=== PATIENT | male | born 1955 | race Caucasian/White ===

== ENCOUNTER 2023-02-04 01:08 | Inpatient (IN) | payer MEDICARE, SELFPAY ==
[2023-02-04 01:53] LABS: Bilirubin Neg (Negative); Blood, Urine 50 (Negative); Clarity Clear (Clear); Glucose, Urine (Dipstick) Normal (Negative); Ketone, Urine Negative (Negative); Leukocyte Negative (Negative); Nitrite Negative (Negative); Protein, Urine (Dipstick) Negative (Neg-Trace); Specific Gravity, Urine 1.015 (1.005-1.030)
[2023-02-04 02:00] LABS: Bacteria/HPF 1+ HPF (None Seen); Squamous Epithelial 0-3 HPF (0-3); WBC/HPF 0-3 HPF (0-3)
[2023-02-04 02:01] LABS: Mucous/LPF 1+ LPF (<2+)
[2023-02-04 02:06] LABS: #Monocytes 0.8 10x3/uL (0.0-1.1); #Neutrophils 4.2 10x3/uL (1.5-8.4); %Basophils 0.4 % (0.0-2.0); %Eosinophils 0.2 % (0.0-6.0); %Monocytes 14.7 % (0.0-10.0); %Neutrophils 76.2 % (40.0-75.0); Mean Corpuscular HGB CONC 33.4 g/dL (32.0-36.0); Mean Corpuscular Hemoglobin 31.3 pg (27.0-33.0); Mean Corpuscular Volume 93.5 fl (81.2-95.1); Mean Platelet Volume 9.5 fl (7.4-10.4); Platelet Count 176 10x3/uL (150-450); Red Blood Cell (RBC) Count 4.48 10x6/uL (4.32-5.72); White Blood Cell (WBC) Count 5.5 10x3/uL (3.5-10.5)
[2023-02-04] MEDS ORDERED: Sterile Water 10 ML ONE ×2 (02:17→10:41)
[2023-02-04] MEDS ORDERED: Ziprasidone 20 MG VIAL ONE ×2 (02:17→10:40)
[2023-02-04 02:22] LABS: ALT (SGPT) 31 U/L (8-55); AST (SGOT) 23 U/L (5-34); Albumin 3.8 g/dL (3.4-4.8); Alkaline Phosphatase 57 U/L (40-110); Anion Gap 13 mmol/L (10-20); BUN (Urea Nitrogen) 12 mg/dL (8.4-25.7); Bilirubin, Total 0.7 mg/dL (0.2-1.2); Calc. Creatinine Clearance 0 mL/min (70-130); Calcium 8.7 mg/dL (7.8-10.44); Carbon Dioxide 22 mmol/L (23-31); Chloride 105 mmol/L (98-107); Estimated GFR 69; Globulin 2.5 g/dL (2.4-3.5); Glucose 96 mg/dL (80-115); Potassium 3.9 mmol/L (3.5-5.1); Protein, Total 6.3 g/dL (5.8-8.1); Sodium 136 mmol/L (136-145)
[2023-02-04] MEDS ORDERED: cefTRIAXone (ROCEPHIN) 1 GM VIAL ONE (02:32)
[2023-02-04 02:52] LABS: SARS-CoV-2 NAA Rapid Test DETECTED (NotDetected)
[2023-02-04] MEDS ORDERED: Ondansetron PF 4 MG/2 ML Vial IVP PRN (06:10)
[2023-02-04] MEDS ORDERED: Senokot S 8.6-50 MG TAB PO PRN (06:10)
[2023-02-04] MEDS ORDERED: Calcium Carbonate 500 MG ChewTAB PO PRN (06:10)
[2023-02-04] MEDS ORDERED: Temazepam 15 MG CAP PO PRN (06:13)
[2023-02-04] MEDS ORDERED: PAXLOVID REQUEST IVPB PRN (06:42)
[2023-02-04] MEDS ORDERED: Tamsulosin HCl 0.4 MG CAP PO SCH (06:45)
[2023-02-04] MEDS ORDERED: Tamsulosin HCl 0.4 MG CAP ONE (13:24)
[2023-02-04] MEDS ORDERED: Amlodipine 5 MG TAB ONE (13:24)
[2023-02-04] MEDS ORDERED: Zinc Sulfate 220 MG CAP ONE (13:24)
[2023-02-04 14:11] VITALS: BMI 26.4
[2023-02-04] MEDS: Amlodipine 5 MG TAB PO SCH (14:30)
[2023-02-04] MEDS: Zinc Sulfate 220 MG CAP PO SCH (14:31)
[2023-02-04] MEDS: Finasteride 5 MG TAB PO SCH (14:31)
[2023-02-04] MEDS ORDERED: Acetaminophen 650 MG Suppository PR PRN (15:51)
[2023-02-04] MEDS ORDERED: Iopamidol 300 61% 100 ML VIAL FS ONE (15:53)
[2023-02-04] MEDS ORDERED: Vancomycin 1.5 GRAM/300 ML BAG 1.5 GM in Premix Bag 1 BAG IVPB SCH (17:00)
[2023-02-04] MEDS ORDERED: Acetaminophen 650 MG Suppository ONE (17:24)
[2023-02-04] MEDS: Tamsulosin HCl 0.4 MG CAP PO SCH (20:42)
[2023-02-04] MEDS: Citalopram 20 MG TAB PO SCH (20:42)
[2023-02-04] MEDS: Atorvastatin Calcium 20 MG TAB PO SCH (20:42)
[2023-02-04] MEDS: Cefepime 2 GM in Sodium Chloride 0.9% 100 ML IVPB SCH (20:42)
[2023-02-04] MEDS: Acetaminophen 325 MG TAB PO PRN (20:43)
[2023-02-05] MEDS ORDERED: cefTRIAXone\\ROCEPHIN 1 GM in Sodium Chloride 0.9% 100 ML IVPB SCH (05:00)
[2023-02-05 06:00] LABS: Hemoglobin 14.5 g/dL (13.5-17.5); Mean Corpuscular HGB CONC 33.2 g/dL (32.0-36.0); Mean Corpuscular Hemoglobin 31.5 pg (27.0-33.0); Mean Corpuscular Volume 94.8 fl (81.2-95.1); Mean Platelet Volume 10.1 fl (7.4-10.4); Platelet Count 162 10x3/uL (150-450); RBC Distribution Width 13.2 % (11.5-14.5); Red Blood Cell (RBC) Count 4.61 10x6/uL (4.32-5.72); White Blood Cell (WBC) Count 4.8 10x3/uL (3.5-10.5)
[2023-02-05 06:01] LABS: MDiff Complete? YES
[2023-02-05 06:11] LABS: ALT (SGPT) 36 U/L (8-55); AST (SGOT) 35 U/L (5-34); Albumin 3.6 g/dL (3.4-4.8); Alkaline Phosphatase 62 U/L (40-110); Anion Gap 15 mmol/L (10-20); BUN (Urea Nitrogen) 17 mg/dL (8.4-25.7); Bilirubin, Total 0.7 mg/dL (0.2-1.2); Calc. Creatinine Clearance 91 mL/min (70-130); Calcium 8.6 mg/dL (7.8-10.44); Carbon Dioxide 21 mmol/L (23-31); Chloride 106 mmol/L (98-107); Estimated GFR 86; Globulin 2.5 g/dL (2.4-3.5); Glucose 110 mg/dL (80-115); Potassium 3.7 mmol/L (3.5-5.1); Protein, Total 6.1 g/dL (5.8-8.1); Sodium 138 mmol/L (136-145)
[2023-02-05 06:16] LABS: Band 3 % (5-11); Lymphocytes 21 % (21-51); Monocytes 10 % (0-10); Neutrophil 63 % (42-75); Reactive Lymphocytes 3 % (0-10)
[2023-02-05 06:18] LABS: Platelet Morphology Comment Appears Adequate
[2023-02-05 06:19] LABS: RBC Morphology Normal
[2023-02-05] MEDS: Amlodipine 5 MG TAB PO SCH (09:12)
[2023-02-05] MEDS: Zinc Sulfate 220 MG CAP PO SCH (09:12)
[2023-02-05] MEDS: Finasteride 5 MG TAB PO SCH (09:13)
[2023-02-05] MEDS: Cefepime 2 GM in Sodium Chloride 0.9% 100 ML IVPB SCH ×2 (09:17→21:47)
[2023-02-05] MEDS: Rivastigmine 1.5 MG CAP PO SCH (09:35)
[2023-02-05] MEDS ORDERED: Haloperidol Lactate 5 MG/ML VIAL ONE (12:13)
[2023-02-05] MEDS ORDERED: Haloperidol Lactate 5 MG/ML VIAL IM SCH (12:15)
[2023-02-05] MEDS: Vancomycin HCl 1 GM in Sodium Chloride 0.9% 250 ML 250 ML IVPB SCH ×2 (14:40→21:50)
[2023-02-05] MEDS ORDERED: Sodium Chloride 0.9% 1,000 ML IV SCH (15:30)
[2023-02-05] MEDS ORDERED: QUEtiapine 25 MG TAB PO SCH (16:00)
[2023-02-05] MEDS: Atorvastatin Calcium 20 MG TAB PO SCH (21:44)
[2023-02-05] MEDS: Tamsulosin HCl 0.4 MG CAP PO SCH (21:44)
[2023-02-06 04:23] LABS: #Eosinphils 0.1 10x3/uL (0.0-0.5); #Monocytes 0.5 10x3/uL (0.0-1.1); #Neutrophils 2.4 10x3/uL (1.5-8.4); %Basophils 0.5 % (0.0-2.0); %Eosinophils 2.5 % (0.0-6.0); %Lymphocytes 24.4 % (18.0-47.0); %Monocytes 12.8 % (0.0-10.0); %Neutrophils 59.3 % (40.0-75.0); Hemoglobin 13.8 g/dL (13.5-17.5); Mean Corpuscular HGB CONC 32.9 g/dL (32.0-36.0); Mean Corpuscular Hemoglobin 31.3 pg (27.0-33.0); Platelet Count 155 10x3/uL (150-450); RBC Distribution Width 13.1 % (11.5-14.5); Red Blood Cell (RBC) Count 4.41 10x6/uL (4.32-5.72); White Blood Cell (WBC) Count 4.1 10x3/uL (3.5-10.5)
[2023-02-06 04:24] LABS: ALT (SGPT) 34 U/L (8-55); AST (SGOT) 31 U/L (5-34); Albumin 3.3 g/dL (3.4-4.8); Alkaline Phosphatase 51 U/L (40-110); Anion Gap 13 mmol/L (10-20); BUN (Urea Nitrogen) 13 mg/dL (8.4-25.7); Bilirubin, Total 0.5 mg/dL (0.2-1.2); Calc. Creatinine Clearance 105 mL/min (70-130); Carbon Dioxide 24 mmol/L (23-31); Chloride 107 mmol/L (98-107); Estimated GFR 96; Globulin 2.2 g/dL (2.4-3.5); Glucose 85 mg/dL (80-115); Potassium 3.6 mmol/L (3.5-5.1); Protein, Total 5.5 g/dL (5.8-8.1); Sodium 140 mmol/L (136-145)
[2023-02-06 08:47] LABS: Vancomycin, Trough 5.3 ug/mL
[2023-02-06] MEDS: Amlodipine 5 MG TAB PO SCH (09:40)
[2023-02-06] MEDS: Zinc Sulfate 220 MG CAP PO SCH (09:41)
[2023-02-06] MEDS: Rivastigmine 1.5 MG CAP PO SCH (09:41)
[2023-02-06] MEDS: Finasteride 5 MG TAB PO SCH (09:41)
[2023-02-06] MEDS: QUEtiapine 25 MG TAB PO SCH (09:41)
[2023-02-06] MEDS: Sodium Chloride 0.9% 1,000 ML IV SCH (13:12)
[2023-02-06] MEDS: Vancomycin HCl 1 GM in Sodium Chloride 0.9% 250 ML 250 ML IVPB SCH (19:53)
[2023-02-06] MEDS: Cefepime 2 GM in Sodium Chloride 0.9% 100 ML IVPB SCH (19:53)
[2023-02-06] MEDS: Atorvastatin Calcium 20 MG TAB PO SCH (21:04)
[2023-02-06] MEDS: Tamsulosin HCl 0.4 MG CAP PO SCH (21:04)
[2023-02-07] MEDS: Sodium Chloride 0.9% 1,000 ML IV SCH ×2 (02:56→21:06)
[2023-02-07 04:20] LABS: #Eosinphils 0.2 10x3/uL (0.0-0.5); #Monocytes 0.5 10x3/uL (0.0-1.1); #Neutrophils 2.4 10x3/uL (1.5-8.4); %Basophils 0.5 % (0.0-2.0); %Lymphocytes 21.3 % (18.0-47.0); %Neutrophils 61.2 % (40.0-75.0); Hemoglobin 13.6 g/dL (13.5-17.5); Mean Corpuscular HGB CONC 33.2 g/dL (32.0-36.0); Mean Corpuscular Hemoglobin 31.3 pg (27.0-33.0); Mean Corpuscular Volume 94.3 fl (81.2-95.1); Mean Platelet Volume 10.4 fl (7.4-10.4); Platelet Count 172 10x3/uL (150-450); Red Blood Cell (RBC) Count 4.35 10x6/uL (4.32-5.72)
[2023-02-07 04:33] LABS: ALT (SGPT) 24 U/L (8-55); AST (SGOT) 22 U/L (5-34); Albumin 3.2 g/dL (3.4-4.8); Alkaline Phosphatase 52 U/L (40-110); Anion Gap 10 mmol/L (10-20); BUN (Urea Nitrogen) 8 mg/dL (8.4-25.7); Bilirubin, Total 0.6 mg/dL (0.2-1.2); Calc. Creatinine Clearance 114 mL/min (70-130); Carbon Dioxide 26 mmol/L (23-31); Chloride 107 mmol/L (98-107); Estimated GFR 98; Globulin 2.2 g/dL (2.4-3.5); Glucose 82 mg/dL (80-115); Potassium 3.4 mmol/L (3.5-5.1); Protein, Total 5.4 g/dL (5.8-8.1); Sodium 140 mmol/L (136-145)
[2023-02-07] MEDS: Zinc Sulfate 220 MG CAP PO SCH (09:01)
[2023-02-07] MEDS: Amlodipine 5 MG TAB PO SCH (09:01)
[2023-02-07] MEDS: QUEtiapine 25 MG TAB PO SCH (09:01)
[2023-02-07] MEDS: Finasteride 5 MG TAB PO SCH (09:01)
[2023-02-07] MEDS: Rivastigmine 1.5 MG CAP PO SCH (09:25)
[2023-02-07] MEDS ORDERED: Potassium Chloride 20 MEQ TAB PO SCH (11:15)
[2023-02-07] MEDS: Citalopram 20 MG TAB PO SCH (21:06)
[2023-02-07] MEDS: Atorvastatin Calcium 20 MG TAB PO SCH (21:06)
[2023-02-07] MEDS: Tamsulosin HCl 0.4 MG CAP PO SCH (21:06)
[2023-02-08] MEDS: Acetaminophen 325 MG TAB PO PRN ×2 (01:27→18:10)
[2023-02-08 05:21] LABS: #Eosinphils 0.1 10x3/uL (0.0-0.5); #Monocytes 0.4 10x3/uL (0.0-1.1); #Neutrophils 5.9 10x3/uL (1.5-8.4); %Basophils 0.1 % (0.0-2.0); %Eosinophils 0.7 % (0.0-6.0); %Lymphocytes 6.9 % (18.0-47.0); %Monocytes 5.6 % (0.0-10.0); %Neutrophils 86.3 % (40.0-75.0); Hemoglobin 14.8 g/dL (13.5-17.5); Mean Corpuscular HGB CONC 33.3 g/dL (32.0-36.0); Mean Corpuscular Hemoglobin 31.4 pg (27.0-33.0); Mean Corpuscular Volume 94.1 fl (81.2-95.1); Mean Platelet Volume 10.1 fl (7.4-10.4); Platelet Count 174 10x3/uL (150-450); Red Blood Cell (RBC) Count 4.72 10x6/uL (4.32-5.72); White Blood Cell (WBC) Count 6.8 10x3/uL (3.5-10.5)
[2023-02-08 05:30] LABS: ALT (SGPT) 25 U/L (8-55); AST (SGOT) 21 U/L (5-34); Albumin 3.5 g/dL (3.4-4.8); Alkaline Phosphatase 66 U/L (40-110); Anion Gap 12 mmol/L (10-20); BUN (Urea Nitrogen) 8 mg/dL (8.4-25.7); Bilirubin, Total 0.7 mg/dL (0.2-1.2); Calc. Creatinine Clearance 104 mL/min (70-130); Calcium 8.3 mg/dL (7.8-10.44); Carbon Dioxide 25 mmol/L (23-31); Chloride 104 mmol/L (98-107); Estimated GFR 96; Globulin 2.6 g/dL (2.4-3.5); Glucose 91 mg/dL (80-115); Potassium 3.6 mmol/L (3.5-5.1); Protein, Total 6.1 g/dL (5.8-8.1); Sodium 137 mmol/L (136-145)
[2023-02-08] MEDS: Sodium Chloride 0.9% 1,000 ML IV SCH ×2 (10:12→17:41)
[2023-02-08] MEDS: Finasteride 5 MG TAB PO SCH (10:14)
[2023-02-08] MEDS: Rivastigmine 1.5 MG CAP PO SCH (10:14)
[2023-02-08] MEDS: Zinc Sulfate 220 MG CAP PO SCH (10:15)
[2023-02-08] MEDS: Amlodipine 5 MG TAB PO SCH (10:15)
[2023-02-08] MEDS: QUEtiapine 25 MG TAB PO SCH (10:15)
[2023-02-08] MEDS: Citalopram 20 MG TAB PO SCH (20:27)
[2023-02-08] MEDS: Tamsulosin HCl 0.4 MG CAP PO SCH (20:27)
[2023-02-08] MEDS: Atorvastatin Calcium 20 MG TAB PO SCH (20:27)
[2023-02-09] MEDS: Acetaminophen 325 MG TAB PO PRN ×2 (01:00→09:21)
[2023-02-09 04:46] LABS: #Monocytes 0.6 10x3/uL (0.0-1.1); #Neutrophils 10.6 10x3/uL (1.5-8.4); %Basophils 0.2 % (0.0-2.0); %Eosinophils 0.3 % (0.0-6.0); %Lymphocytes 7.6 % (18.0-47.0); %Monocytes 4.7 % (0.0-10.0); %Neutrophils 86.7 % (40.0-75.0); Mean Corpuscular HGB CONC 33.3 g/dL (32.0-36.0); Platelet Count 171 10x3/uL (150-450); RBC Distribution Width 13.1 % (11.5-14.5); Red Blood Cell (RBC) Count 4.84 10x6/uL (4.32-5.72); White Blood Cell (WBC) Count 12.3 10x3/uL (3.5-10.5)
[2023-02-09 04:52] LABS: ALT (SGPT) 27 U/L (8-55); AST (SGOT) 28 U/L (5-34); Albumin 3.4 g/dL (3.4-4.8); Alkaline Phosphatase 64 U/L (40-110); Anion Gap 12 mmol/L (10-20); BUN (Urea Nitrogen) 15 mg/dL (8.4-25.7); Bilirubin, Total 0.7 mg/dL (0.2-1.2); Calc. Creatinine Clearance 84 mL/min (70-130); Calcium 8.4 mg/dL (7.8-10.44); Carbon Dioxide 23 mmol/L (23-31); Chloride 102 mmol/L (98-107); Estimated GFR 78; Globulin 2.7 g/dL (2.4-3.5); Glucose 99 mg/dL (80-115); Potassium 3.6 mmol/L (3.5-5.1); Protein, Total 6.1 g/dL (5.8-8.1); Sodium 133 mmol/L (136-145)
[2023-02-09] MEDS: Sodium Chloride 0.9% 1,000 ML IV SCH ×2 (07:31→21:13)
[2023-02-09] MEDS: Amlodipine 5 MG TAB PO SCH (09:22)
[2023-02-09] MEDS: Finasteride 5 MG TAB PO SCH (09:22)
[2023-02-09] MEDS: Rivastigmine 1.5 MG CAP PO SCH (09:23)
[2023-02-09] MEDS: Zinc Sulfate 220 MG CAP PO SCH (09:23)
[2023-02-09] MEDS: QUEtiapine 25 MG TAB PO SCH (09:27)
[2023-02-09] MEDS ORDERED: Vancomycin 1.5 GRAM/300 ML BAG 1.5 GM in Premix Bag 1 BAG IVPB SCH ×2 (10:00→12:00)
[2023-02-09] MEDS: Cefepime 2 GM in Sodium Chloride 0.9% 100 ML IVPB SCH ×2 (11:40→21:15)
[2023-02-09] MEDS ORDERED: Sodium Chloride 0.9% 1,000 ML IV SCH (17:15)
[2023-02-09] MEDS ORDERED: Ketorolac Tromethamine 30 MG/ML VIAL IM SCH (18:15)
[2023-02-09] MEDS: Citalopram 20 MG TAB PO SCH (21:14)
[2023-02-09] MEDS: Tamsulosin HCl 0.4 MG CAP PO SCH (21:15)
[2023-02-09] MEDS: Atorvastatin Calcium 20 MG TAB PO SCH (21:15)
[2023-02-09] MEDS: Vancomycin HCl 1 GM in Sodium Chloride 0.9% 250 ML 250 ML IVPB SCH (23:54)
[2023-02-10 04:49] LABS: Hemoglobin 13.8 g/dL (13.5-17.5); MDiff Complete? YES; Mean Corpuscular HGB CONC 33.7 g/dL (32.0-36.0); Mean Corpuscular Hemoglobin 31.2 pg (27.0-33.0); Mean Corpuscular Volume 92.3 fl (81.2-95.1); Mean Platelet Volume 10.4 fl (7.4-10.4); Platelet Count 160 10x3/uL (150-450); RBC Distribution Width 13.1 % (11.5-14.5); Red Blood Cell (RBC) Count 4.43 10x6/uL (4.32-5.72); White Blood Cell (WBC) Count 10.6 10x3/uL (3.5-10.5)
[2023-02-10 04:56] LABS: ALT (SGPT) 22 U/L (8-55); AST (SGOT) 26 U/L (5-34); Albumin 2.8 g/dL (3.4-4.8); Alkaline Phosphatase 55 U/L (40-110); Anion Gap 13 mmol/L (10-20); BUN (Urea Nitrogen) 14 mg/dL (8.4-25.7); Bilirubin, Total 0.5 mg/dL (0.2-1.2); Calc. Creatinine Clearance 108 mL/min (70-130); Calcium 7.6 mg/dL (7.8-10.44); Carbon Dioxide 18 mmol/L (23-31); Chloride 106 mmol/L (98-107); Estimated GFR 97; Globulin 2.1 g/dL (2.4-3.5); Glucose 94 mg/dL (80-115); Potassium 3.3 mmol/L (3.5-5.1); Protein, Total 4.9 g/dL (5.8-8.1); Sodium 134 mmol/L (136-145)
[2023-02-10 05:12] LABS: Band 12 % (5-11); Lymphocytes 4 % (21-51); Monocytes 8 % (0-10); Neutrophil 76 % (42-75)
[2023-02-10 05:13] LABS: Platelet Morphology Comment Appears Adequate
[2023-02-10] MEDS: Rivastigmine 1.5 MG CAP PO SCH (08:42)
[2023-02-10] MEDS: Amlodipine 5 MG TAB PO SCH (08:42)
[2023-02-10] MEDS: Finasteride 5 MG TAB PO SCH (08:43)
[2023-02-10] MEDS: QUEtiapine 25 MG TAB PO SCH (08:43)
[2023-02-10] MEDS: Zinc Sulfate 220 MG CAP PO SCH (08:45)
[2023-02-10] MEDS ORDERED: Potassium Chloride 20 MEQ TAB PO SCH (09:00)
[2023-02-10] MEDS: Vancomycin HCl 25 MG/ML ORAL SOLN PO SCH ×3 (10:05→21:35)
[2023-02-10] MEDS: Cefepime 2 GM in Sodium Chloride 0.9% 100 ML IVPB SCH ×2 (10:06→21:35)
[2023-02-10] MEDS: Sodium Chloride 0.9% 1,000 ML IV SCH (10:07)
[2023-02-10] MEDS: Vancomycin HCl 1 GM in Sodium Chloride 0.9% 250 ML 250 ML IVPB SCH (13:22)
[2023-02-10] MEDS: Acetaminophen 325 MG TAB PO SCH (18:53)
[2023-02-10] MEDS: Tamsulosin HCl 0.4 MG CAP PO SCH (21:35)
[2023-02-10] MEDS: Citalopram 20 MG TAB PO SCH (21:35)
[2023-02-10] MEDS: Atorvastatin Calcium 20 MG TAB PO SCH (21:35)
[2023-02-10 23:36] LABS: Vancomycin, Trough 6.9 ug/mL
[2023-02-10] MEDS ORDERED: Vancomycin 1.5 GRAM/300 ML BAG 1.5 GM in Premix Bag 1 BAG IVPB SCH (23:59)
[2023-02-11] MEDS: Sodium Chloride 0.9% 1,000 ML IV SCH ×2 (00:15→13:11)
[2023-02-11] MEDS: Vancomycin HCl 25 MG/ML ORAL SOLN PO SCH ×4 (03:45→22:06)
[2023-02-11 04:44] LABS: Hemoglobin 12.8 g/dL (13.5-17.5); MDiff Complete? YES; Mean Corpuscular HGB CONC 33.2 g/dL (32.0-36.0); Mean Corpuscular Hemoglobin 31.3 pg (27.0-33.0); Mean Corpuscular Volume 94.1 fl (81.2-95.1); Mean Platelet Volume 10.5 fl (7.4-10.4); Platelet Count 151 10x3/uL (150-450); RBC Distribution Width 13.3 % (11.5-14.5); Red Blood Cell (RBC) Count 4.09 10x6/uL (4.32-5.72)
[2023-02-11 04:59] LABS: ALT (SGPT) 30 U/L (8-55); AST (SGOT) 38 U/L (5-34); Albumin 2.5 g/dL (3.4-4.8); Alkaline Phosphatase 50 U/L (40-110); Anion Gap 10 mmol/L (10-20); BUN (Urea Nitrogen) 11 mg/dL (8.4-25.7); Bilirubin, Total 0.4 mg/dL (0.2-1.2); Calc. Creatinine Clearance 130 mL/min (70-130); Calcium 7.5 mg/dL (7.8-10.44); Carbon Dioxide 19 mmol/L (23-31); Chloride 112 mmol/L (98-107); Estimated GFR 103; Globulin 2.2 g/dL (2.4-3.5); Glucose 85 mg/dL (80-115); Potassium 3.4 mmol/L (3.5-5.1); Protein, Total 4.7 g/dL (5.8-8.1); Sodium 138 mmol/L (136-145)
[2023-02-11 05:19] LABS: Band 11 % (5-11); Eosinophils 3 % (0-10); Lymphocytes 7 % (21-51); Monocytes 5 % (0-10); Neutrophil 73 % (42-75); Reactive Lymphocytes 1 % (0-10)
[2023-02-11 05:20] LABS: Platelet Morphology Comment Appears Adequate
[2023-02-11] MEDS ORDERED: Potassium Chloride 20 MEQ TAB PO SCH (09:30)
[2023-02-11] MEDS: Finasteride 5 MG TAB PO SCH (10:32)
[2023-02-11] MEDS: Rivastigmine 1.5 MG CAP PO SCH (10:32)
[2023-02-11] MEDS: Zinc Sulfate 220 MG CAP PO SCH (10:32)
[2023-02-11] MEDS: Amlodipine 5 MG TAB PO SCH (10:32)
[2023-02-11] MEDS: QUEtiapine 25 MG TAB PO SCH (10:32)
[2023-02-11] MEDS: Acetaminophen 325 MG TAB PO SCH ×4 (13:09→23:55)
[2023-02-11] MEDS: Citalopram 20 MG TAB PO SCH (21:59)
[2023-02-11] MEDS: Tamsulosin HCl 0.4 MG CAP PO SCH (21:59)
[2023-02-11] MEDS: Atorvastatin Calcium 20 MG TAB PO SCH (21:59)
[2023-02-12] MEDS: Vancomycin HCl 25 MG/ML ORAL SOLN PO SCH ×4 (04:36→23:55)
[2023-02-12 06:11] LABS: #Basophils 0.1 10x3/uL (0.0-0.2); #Eosinphils 0.3 10x3/uL (0.0-0.5); #Monocytes 0.7 10x3/uL (0.0-1.1); #Neutrophils 3.2 10x3/uL (1.5-8.4); %Basophils 0.9 % (0.0-2.0); %Eosinophils 5.2 % (0.0-6.0); %Lymphocytes 17.8 % (18.0-47.0); %Monocytes 12.9 % (0.0-10.0); %Neutrophils 60.2 % (40.0-75.0); Hemoglobin 12.7 g/dL (13.5-17.5); Mean Corpuscular Hemoglobin 30.8 pg (27.0-33.0); Mean Corpuscular Volume 93.4 fl (81.2-95.1); Mean Platelet Volume 10.2 fl (7.4-10.4); Platelet Count 195 10x3/uL (150-450); RBC Distribution Width 13.3 % (11.5-14.5); Red Blood Cell (RBC) Count 4.12 10x6/uL (4.32-5.72); White Blood Cell (WBC) Count 5.3 10x3/uL (3.5-10.5)
[2023-02-12 06:12] LABS: ALT (SGPT) 47 U/L (8-55); AST (SGOT) 55 U/L (5-34); Albumin 2.7 g/dL (3.4-4.8); Alkaline Phosphatase 61 U/L (40-110); Anion Gap 13 mmol/L (10-20); BUN (Urea Nitrogen) 8 mg/dL (8.4-25.7); Bilirubin, Total 0.5 mg/dL (0.2-1.2); Calc. Creatinine Clearance 143 mL/min (70-130); Calcium 7.7 mg/dL (7.8-10.44); Carbon Dioxide 20 mmol/L (23-31); Chloride 111 mmol/L (98-107); Estimated GFR 105; Globulin 2.5 g/dL (2.4-3.5); Glucose 81 mg/dL (80-115); Potassium 3.6 mmol/L (3.5-5.1); Protein, Total 5.2 g/dL (5.8-8.1); Sodium 140 mmol/L (136-145)
[2023-02-12] MEDS: Acetaminophen 325 MG TAB PO SCH ×5 (06:48→23:53)
[2023-02-12] MEDS: Sodium Chloride 0.9% 1,000 ML IV SCH ×2 (07:49→17:58)
[2023-02-12] MEDS: Amlodipine 5 MG TAB PO SCH (09:59)
[2023-02-12] MEDS: Zinc Sulfate 220 MG CAP PO SCH (10:00)
[2023-02-12] MEDS: Finasteride 5 MG TAB PO SCH (10:00)
[2023-02-12] MEDS: QUEtiapine 25 MG TAB PO SCH (10:00)
[2023-02-12] MEDS: Rivastigmine 1.5 MG CAP PO SCH (10:03)
[2023-02-12] MEDS: Tamsulosin HCl 0.4 MG CAP PO SCH (21:40)
[2023-02-12] MEDS: Citalopram 20 MG TAB PO SCH (21:40)
[2023-02-12] MEDS: Atorvastatin Calcium 20 MG TAB PO SCH (21:40)
[2023-02-13] MEDS: Vancomycin HCl 25 MG/ML ORAL SOLN PO SCH ×4 (04:24→23:00)
[2023-02-13] MEDS: Sodium Chloride 0.9% 1,000 ML IV SCH ×2 (05:37→16:07)
[2023-02-13] MEDS: Acetaminophen 325 MG TAB PO SCH ×4 (05:37→22:49)
[2023-02-13] MEDS: Amlodipine 5 MG TAB PO SCH (10:32)
[2023-02-13] MEDS: QUEtiapine 25 MG TAB PO SCH (10:32)
[2023-02-13] MEDS: Zinc Sulfate 220 MG CAP PO SCH (10:32)
[2023-02-13] MEDS: Rivastigmine 1.5 MG CAP PO SCH (10:32)
[2023-02-13] MEDS: Finasteride 5 MG TAB PO SCH (10:32)
[2023-02-13] MEDS ORDERED: QUEtiapine 25 MG TAB PO SCH (20:45)
[2023-02-13] MEDS: Atorvastatin Calcium 20 MG TAB PO SCH (22:49)
[2023-02-13] MEDS: Citalopram 20 MG TAB PO SCH (22:50)
[2023-02-13] MEDS: Tamsulosin HCl 0.4 MG CAP PO SCH (22:52)
[2023-02-14] MEDS: Vancomycin HCl 25 MG/ML ORAL SOLN PO SCH ×3 (05:10→19:04)
[2023-02-14] MEDS: Acetaminophen 325 MG TAB PO SCH ×4 (05:10→23:58)
[2023-02-14] MEDS: Sodium Chloride 0.9% 1,000 ML IV SCH ×2 (05:10→16:18)
[2023-02-14] MEDS: Rivastigmine 1.5 MG CAP PO SCH (10:39)
[2023-02-14] MEDS: QUEtiapine 25 MG TAB PO SCH (10:39)
[2023-02-14] MEDS: Finasteride 5 MG TAB PO SCH (10:39)
[2023-02-14] MEDS: Zinc Sulfate 220 MG CAP PO SCH (10:40)
[2023-02-14] MEDS: Amlodipine 5 MG TAB PO SCH (10:40)
[2023-02-14] MEDS ORDERED: diphenhydrAMINE 50 MG/ML VIAL IVP SCH (20:00)
[2023-02-14] MEDS ORDERED: diphenhydrAMINE 12.5 MG/5 ML UDCUP PO SCH (20:00)
[2023-02-14] MEDS: Citalopram 20 MG TAB PO SCH (21:28)
[2023-02-14] MEDS: Atorvastatin Calcium 20 MG TAB PO SCH (21:28)
[2023-02-14] MEDS: Tamsulosin HCl 0.4 MG CAP PO SCH (21:28)
[2023-02-14] MEDS: Fidaxomicin 200 MG TAB PO SCH (21:38)
[2023-02-14] MEDS ORDERED: QUEtiapine 25 MG TAB PO SCH (23:45)
[2023-02-15] MEDS ORDERED: Melatonin 3 MG TAB PO SCH (02:00)
[2023-02-15 04:45] LABS: Hemoglobin 12.4 g/dL (13.5-17.5); Mean Corpuscular HGB CONC 32.6 g/dL (32.0-36.0); Mean Corpuscular Hemoglobin 30.5 pg (27.0-33.0); Mean Corpuscular Volume 93.4 fl (81.2-95.1); Mean Platelet Volume 9.7 fl (7.4-10.4); Platelet Count 302 10x3/uL (150-450); RBC Distribution Width 13.2 % (11.5-14.5); Red Blood Cell (RBC) Count 4.07 10x6/uL (4.32-5.72); White Blood Cell (WBC) Count 9.3 10x3/uL (3.5-10.5)
[2023-02-15 05:07] LABS: Anion Gap 17 mmol/L (10-20); BUN (Urea Nitrogen) 9 mg/dL (8.4-25.7); Calc. Creatinine Clearance 138 mL/min (70-130); Calcium 7.9 mg/dL (7.8-10.44); Carbon Dioxide 18 mmol/L (23-31); Chloride 108 mmol/L (98-107); Estimated GFR 104; Glucose 61 mg/dL (80-115); Potassium 3.1 mmol/L (3.5-5.1); Sodium 140 mmol/L (136-145)
[2023-02-15] MEDS: Acetaminophen 325 MG TAB PO SCH ×4 (06:21→18:05)
[2023-02-15] MEDS: Sodium Chloride 0.9% 1,000 ML IV SCH (06:34)
[2023-02-15] MEDS: QUEtiapine 25 MG TAB PO SCH (09:40)
[2023-02-15] MEDS: Fidaxomicin 200 MG TAB PO SCH ×2 (09:40→22:05)
[2023-02-15] MEDS: Rivastigmine 1.5 MG CAP PO SCH (09:40)
[2023-02-15] MEDS: Finasteride 5 MG TAB PO SCH (09:41)
[2023-02-15] MEDS: Zinc Sulfate 220 MG CAP PO SCH (09:41)
[2023-02-15] MEDS: Amlodipine 5 MG TAB PO SCH (09:41)
[2023-02-15] MEDS ORDERED: Potassium Chloride 20 MEQ in Premix Bag 1 BAG IVPB SCH (11:30)
[2023-02-15] MEDS ORDERED: Potassium Bicarbonate/Cit Ac 20 MEQ TAB PO SCH ×2 (11:30→17:00)
[2023-02-15] MEDS: Atorvastatin Calcium 20 MG TAB PO SCH (22:04)
[2023-02-15] MEDS: Citalopram 20 MG TAB PO SCH (22:04)
[2023-02-15] MEDS: Tamsulosin HCl 0.4 MG CAP PO SCH (22:05)
[2023-02-16] MEDS: Acetaminophen 325 MG TAB PO SCH ×5 (00:09→23:41)
[2023-02-16] MEDS ORDERED: Rivastigmine 1.5 MG CAP PO SCH (09:00)
[2023-02-16] MEDS: Amlodipine 5 MG TAB PO SCH (10:30)
[2023-02-16] MEDS: Finasteride 5 MG TAB PO SCH (10:30)
[2023-02-16] MEDS: Zinc Sulfate 220 MG CAP PO SCH (10:30)
[2023-02-16] MEDS: QUEtiapine 25 MG TAB PO SCH (10:30)
[2023-02-16] MEDS: Fidaxomicin 200 MG TAB PO SCH ×2 (10:31→20:55)
[2023-02-16] MEDS: Rivastigmine 1.5 MG CAP PO SCH (10:31)
[2023-02-16] MEDS: Tamsulosin HCl 0.4 MG CAP PO SCH (20:55)
[2023-02-16] MEDS: Atorvastatin Calcium 20 MG TAB PO SCH (20:55)
[2023-02-16] MEDS: Citalopram 20 MG TAB PO SCH (20:55)
[2023-02-16] MEDS: Temazepam 15 MG CAP PO PRN (20:56)
[2023-02-16] MEDS ORDERED: Non-Formulary Medication 1 EACH (Citalopram [Celexa] 10 MG Tab) PO SCH (21:00)
[2023-02-17 04:44] LABS: Anion Gap 15 mmol/L (10-20); BUN (Urea Nitrogen) 10 mg/dL (8.4-25.7); Calc. Creatinine Clearance 136 mL/min (70-130); Calcium 8.3 mg/dL (7.8-10.44); Carbon Dioxide 21 mmol/L (23-31); Chloride 108 mmol/L (98-107); Estimated GFR 104; Glucose 73 mg/dL (80-115); Potassium 3.3 mmol/L (3.5-5.1); Sodium 141 mmol/L (136-145)
[2023-02-17] MEDS: Acetaminophen 325 MG TAB PO SCH ×4 (06:24→22:08)
[2023-02-17] MEDS: Zinc Sulfate 220 MG CAP PO SCH (08:36)
[2023-02-17] MEDS: QUEtiapine 25 MG TAB PO SCH (08:36)
[2023-02-17] MEDS: Rivastigmine 1.5 MG CAP PO SCH (08:36)
[2023-02-17] MEDS: Amlodipine 5 MG TAB PO SCH (08:37)
[2023-02-17] MEDS: Finasteride 5 MG TAB PO SCH (08:37)
[2023-02-17] MEDS: Fidaxomicin 200 MG TAB PO SCH ×2 (08:37→22:09)
[2023-02-17] MEDS: Potassium Chloride 20 MEQ in Premix Bag 1 BAG IVPB SCH ×2 (08:37→14:30)
[2023-02-17] MEDS ORDERED: Magnesium 2 GM/50 ML(in water) 2 GM in Premix Bag 1 BAG IVPB SCH (09:00)
[2023-02-17] MEDS: Citalopram 20 MG TAB PO SCH (22:08)
[2023-02-17] MEDS: Temazepam 15 MG CAP PO PRN (22:08)
[2023-02-17] MEDS: Tamsulosin HCl 0.4 MG CAP PO SCH (22:09)
[2023-02-17] MEDS: Atorvastatin Calcium 20 MG TAB PO SCH (22:09)
[2023-02-18] MEDS: Acetaminophen 325 MG TAB PO SCH ×2 (06:00→22:32)
[2023-02-18] MEDS: Amlodipine 5 MG TAB PO SCH (10:55)
[2023-02-18] MEDS: Fidaxomicin 200 MG TAB PO SCH ×2 (10:56→22:34)
[2023-02-18] MEDS: Finasteride 5 MG TAB PO SCH (10:56)
[2023-02-18] MEDS: Rivastigmine 1.5 MG CAP PO SCH (10:57)
[2023-02-18] MEDS: QUEtiapine 25 MG TAB PO SCH (10:57)
[2023-02-18] MEDS: Zinc Sulfate 220 MG CAP PO SCH (10:58)
[2023-02-18] MEDS: Citalopram 20 MG TAB PO SCH (22:33)
[2023-02-18] MEDS: Temazepam 15 MG CAP PO PRN (22:33)
[2023-02-18] MEDS: Tamsulosin HCl 0.4 MG CAP PO SCH (22:34)
[2023-02-18] MEDS: Atorvastatin Calcium 20 MG TAB PO SCH (22:34)
[2023-02-19 05:20] LABS: Anion Gap 19 mmol/L (10-20); BUN (Urea Nitrogen) 9 mg/dL (8.4-25.7); Calc. Creatinine Clearance 114 mL/min (70-130); Calcium 8.8 mg/dL (7.8-10.44); Carbon Dioxide 21 mmol/L (23-31); Chloride 103 mmol/L (98-107); Estimated GFR 98; Glucose 89 mg/dL (80-115); Magnesium 2.1 mg/dL (1.6-2.6); Potassium 4.1 mmol/L (3.5-5.1); Sodium 139 mmol/L (136-145)
[2023-02-19] MEDS: Zinc Sulfate 220 MG CAP PO SCH (09:56)
[2023-02-19] MEDS: Amlodipine 5 MG TAB PO SCH (09:56)
[2023-02-19] MEDS: QUEtiapine 25 MG TAB PO SCH (09:56)
[2023-02-19] MEDS: Rivastigmine 1.5 MG CAP PO SCH (10:00)
[2023-02-19] MEDS: Finasteride 5 MG TAB PO SCH (10:00)
[2023-02-19] MEDS: Fidaxomicin 200 MG TAB PO SCH ×2 (10:00→21:17)
[2023-02-19] MEDS: Acetaminophen 325 MG TAB PO SCH ×3 (13:50→17:36)
[2023-02-19] MEDS: Atorvastatin Calcium 20 MG TAB PO SCH (21:16)
[2023-02-19] MEDS: Tamsulosin HCl 0.4 MG CAP PO SCH (21:16)
[2023-02-19] MEDS: Citalopram 20 MG TAB PO SCH (21:16)
[2023-02-19] MEDS: Temazepam 15 MG CAP PO PRN (21:16)
[2023-02-20] MEDS: Acetaminophen 325 MG TAB PO SCH ×7 (00:12→23:30)
[2023-02-20 04:29] LABS: #Basophils 0.1 10x3/uL (0.0-0.2); #Monocytes 1.6 10x3/uL (0.0-1.1); #Neutrophils 15.8 10x3/uL (1.5-8.4); %Basophils 0.4 % (0.0-2.0); %Eosinophils 0.1 % (0.0-6.0); %Lymphocytes 5.2 % (18.0-47.0); %Monocytes 8.6 % (0.0-10.0); %Neutrophils 84.8 % (40.0-75.0); Hemoglobin 13.8 g/dL (13.5-17.5); Mean Corpuscular HGB CONC 33.2 g/dL (32.0-36.0); Mean Corpuscular Hemoglobin 31.1 pg (27.0-33.0); Mean Corpuscular Volume 93.7 fl (81.2-95.1); Mean Platelet Volume 10.2 fl (7.4-10.4); Platelet Count 326 10x3/uL (150-450); RBC Distribution Width 14.2 % (11.5-14.5); Red Blood Cell (RBC) Count 4.44 10x6/uL (4.32-5.72); White Blood Cell (WBC) Count 18.6 10x3/uL (3.5-10.5)
[2023-02-20 04:52] LABS: ALT (SGPT) 59 U/L (8-55); AST (SGOT) 28 U/L (5-34); Albumin 3.4 g/dL (3.4-4.8); Alkaline Phosphatase 74 U/L (40-110); Anion Gap 18 mmol/L (10-20); BUN (Urea Nitrogen) 12 mg/dL (8.4-25.7); Bilirubin, Direct 0.5 mg/dL (0.1-0.3); Calc. Creatinine Clearance 98 mL/min (70-130); Calcium 8.7 mg/dL (7.8-10.44); Carbon Dioxide 23 mmol/L (23-31); Chloride 101 mmol/L (98-107); Estimated GFR 94; Glucose 86 mg/dL (80-115); Potassium 3.8 mmol/L (3.5-5.1); Protein, Total 6.3 g/dL (5.8-8.1); Sodium 138 mmol/L (136-145)
[2023-02-20 08:53] LABS: Actual Bicarbonate (HCO3v) 23 mEq/L (22-28); Base Excess -0.2 mEq/L (-2 - +2); Calcium, Ionized (venous) 1.13 mmol/L (1.16-1.32); Chloride (VBG) 96 mmol/L (98-106); Potassium (VBG) 3.95 mmol/L (3.70-5.30); Puncture Site Other Site; RapidComm Collect By CBN; pH (venous) 7.44 (7.32-7.43)
[2023-02-20] MEDS: Zinc Sulfate 220 MG CAP PO SCH (09:49)
[2023-02-20] MEDS: Fidaxomicin 200 MG TAB PO SCH (09:50)
[2023-02-20] MEDS: QUEtiapine 25 MG TAB PO SCH (09:50)
[2023-02-20] MEDS: Rivastigmine 1.5 MG CAP PO SCH (09:50)
[2023-02-20] MEDS: Finasteride 5 MG TAB PO SCH (09:50)
[2023-02-20] MEDS ORDERED: Vancomycin 1 GM in Premix Bag 1 BAG IVPB SCH (10:39)
[2023-02-20] MEDS ORDERED: VANCOMYCIN 1.75 GM/350 ML BAG 1.75 GM in Premix Bag 1 BAG IVPB SCH (11:00)
[2023-02-20] MEDS ORDERED: Meropenem 1 GM in Sodium Chloride 0.9% 100 ML IVPB SCH (11:30)
[2023-02-20] MEDS ORDERED: Lactated Ringer's 1,000 ML IV SCH (14:45)
[2023-02-20 16:22] LABS: Bilirubin 1+ (Negative); Blood, Urine 150 (Negative); Clarity Slightly Cloudy (Clear); Glucose, Urine (Dipstick) Normal (Negative); Ketone, Urine 50 mg/dL (Negative); Leukocyte 500 (Negative); Nitrite Positive (Negative); Protein, Urine (Dipstick) 100 mg/dl (Neg-Trace); Urobilinogen Normal mg/dL (Less than 2)
[2023-02-20 16:27] LABS: Bacteria/HPF 3+ HPF (None Seen); CAUTI Indications for Culture Fever or rigors; Legionella Urinary Ag Negative (Negative); Squamous Epithelial 0-3 HPF (0-3); Strep pneumo Urine Ag NEGATIVE (NEGATIVE); WBC/HPF Greater than 50 HPF (0-3)
[2023-02-20 16:29] LABS: Urine Culture Reflex Yes Yes
[2023-02-20] MEDS: Lactated Ringer's 1,000 ML IV SCH (17:25)
[2023-02-20] MEDS: Meropenem 1 GM in Sodium Chloride 0.9% 100 ML IVPB SCH (21:12)
[2023-02-20] MEDS: Atorvastatin Calcium 20 MG TAB PO SCH (21:21)
[2023-02-20] MEDS: Citalopram 20 MG TAB PO SCH (21:21)
[2023-02-20] MEDS: Tamsulosin HCl 0.4 MG CAP PO SCH (21:21)
[2023-02-20 22:46] LABS: SARS-CoV-2 NAA Rapid Test DETECTED (NotDetected)
[2023-02-20] MEDS ORDERED: VANCOMYCIN 1.25 GM/250 ML BAG 1.25 GM in Premix Bag 1 BAG IVPB SCH (23:00)
[2023-02-21] MEDS: Acetaminophen 325 MG TAB PO SCH ×6 (00:36→18:20)
[2023-02-21] MEDS: Lactated Ringer's 1,000 ML IV SCH ×3 (02:34→10:50)
[2023-02-21] MEDS: Meropenem 1 GM in Sodium Chloride 0.9% 100 ML IVPB SCH ×3 (03:21→20:41)
[2023-02-21 03:47] LABS: Anion Gap 15 mmol/L (10-20); BUN (Urea Nitrogen) 12 mg/dL (8.4-25.7); Calc. Creatinine Clearance 115 mL/min (70-130); Calcium 8.4 mg/dL (7.8-10.44); Carbon Dioxide 25 mmol/L (23-31); Chloride 104 mmol/L (98-107); Estimated GFR 99; Glucose 76 mg/dL (80-115); Magnesium 1.8 mg/dL (1.6-2.6); Potassium 3.8 mmol/L (3.5-5.1); Sodium 140 mmol/L (136-145)
[2023-02-21 03:56] LABS: #Basophils 0.1 10x3/uL (0.0-0.2); #Eosinphils 0.2 10x3/uL (0.0-0.5); #Monocytes 1.5 10x3/uL (0.0-1.1); #Neutrophils 14.6 10x3/uL (1.5-8.4); %Basophils 0.5 % (0.0-2.0); %Eosinophils 0.9 % (0.0-6.0); %Monocytes 8.3 % (0.0-10.0); %Neutrophils 83.7 % (40.0-75.0); Hemoglobin 11.6 g/dL (13.5-17.5); Mean Corpuscular HGB CONC 33.4 g/dL (32.0-36.0); Mean Corpuscular Hemoglobin 31.2 pg (27.0-33.0); Mean Corpuscular Volume 93.3 fl (81.2-95.1); Mean Platelet Volume 10.1 fl (7.4-10.4); Platelet Count 305 10x3/uL (150-450); RBC Distribution Width 14.1 % (11.5-14.5); Red Blood Cell (RBC) Count 3.72 10x6/uL (4.32-5.72); White Blood Cell (WBC) Count 17.5 10x3/uL (3.5-10.5)
[2023-02-21] MEDS: Finasteride 5 MG TAB PO SCH (08:47)
[2023-02-21] MEDS: Rivastigmine 1.5 MG CAP PO SCH (08:48)
[2023-02-21] MEDS: Zinc Sulfate 220 MG CAP PO SCH (08:48)
[2023-02-21] MEDS: Tamsulosin HCl 0.4 MG CAP PO SCH (20:41)
[2023-02-21] MEDS: Atorvastatin Calcium 20 MG TAB PO SCH (20:42)
[2023-02-21] MEDS: Citalopram 20 MG TAB PO SCH (20:42)
[2023-02-22] MEDS: Meropenem 1 GM in Sodium Chloride 0.9% 100 ML IVPB SCH ×3 (03:35→20:33)
[2023-02-22] MEDS: Lactated Ringer's 1,000 ML IV SCH (03:38)
[2023-02-22 05:08] LABS: #Basophils 0.1 10x3/uL (0.0-0.2); #Eosinphils 0.2 10x3/uL (0.0-0.5); #Monocytes 1.1 10x3/uL (0.0-1.1); #Neutrophils 7.1 10x3/uL (1.5-8.4); %Basophils 0.6 % (0.0-2.0); %Eosinophils 2.1 % (0.0-6.0); %Monocytes 11.2 % (0.0-10.0); %Neutrophils 74.5 % (40.0-75.0); Hemoglobin 11.8 g/dL (13.5-17.5); Mean Corpuscular HGB CONC 32.9 g/dL (32.0-36.0); Mean Corpuscular Hemoglobin 30.9 pg (27.0-33.0); Mean Platelet Volume 10.7 fl (7.4-10.4); Platelet Count 334 10x3/uL (150-450); RBC Distribution Width 13.9 % (11.5-14.5); Red Blood Cell (RBC) Count 3.82 10x6/uL (4.32-5.72); White Blood Cell (WBC) Count 9.6 10x3/uL (3.5-10.5)
[2023-02-22 05:23] LABS: Anion Gap 17 mmol/L (10-20); BUN (Urea Nitrogen) 9 mg/dL (8.4-25.7); Calc. Creatinine Clearance 141 mL/min (70-130); Calcium 8.2 mg/dL (7.8-10.44); Carbon Dioxide 21 mmol/L (23-31); Chloride 106 mmol/L (98-107); Estimated GFR 105; Glucose 70 mg/dL (80-115); Magnesium 1.9 mg/dL (1.6-2.6); Potassium 3.7 mmol/L (3.5-5.1); Sodium 140 mmol/L (136-145)
[2023-02-22 05:40] LABS: Syphilis Antibody Nonreactive (Nonreactive); Syphilis Antibody Index 0.07 S/CO (<1.00 Non-Reactive)
[2023-02-22] MEDS: Acetaminophen 325 MG TAB PO SCH ×3 (05:41→18:12)
[2023-02-22] MEDS: Finasteride 5 MG TAB PO SCH (10:22)
[2023-02-22] MEDS: Rivastigmine 1.5 MG CAP PO SCH (10:23)
[2023-02-22] MEDS: Zinc Sulfate 220 MG CAP PO SCH (10:25)
[2023-02-22] MEDS: Citalopram 20 MG TAB PO SCH (20:34)
[2023-02-22] MEDS: Tamsulosin HCl 0.4 MG CAP PO SCH (20:34)
[2023-02-22] MEDS: Atorvastatin Calcium 20 MG TAB PO SCH (20:34)
[2023-02-23] MEDS: Temazepam 15 MG CAP PO PRN (00:34)
[2023-02-23] MEDS: Acetaminophen 325 MG TAB PO SCH ×4 (00:34→18:06)
[2023-02-23] MEDS: Meropenem 1 GM in Sodium Chloride 0.9% 100 ML IVPB SCH ×2 (04:48→10:33)
[2023-02-23 05:25] LABS: Anion Gap 15 mmol/L (10-20); BUN (Urea Nitrogen) 10 mg/dL (8.4-25.7); Calc. Creatinine Clearance 138 mL/min (70-130); Calcium 8.3 mg/dL (7.8-10.44); Carbon Dioxide 25 mmol/L (23-31); Chloride 104 mmol/L (98-107); Estimated GFR 104; Glucose 80 mg/dL (80-115); Potassium 3.3 mmol/L (3.5-5.1); Sodium 141 mmol/L (136-145)
[2023-02-23 05:30] LABS: #Basophils 0.1 10x3/uL (0.0-0.2); #Eosinphils 0.2 10x3/uL (0.0-0.5); #Monocytes 0.8 10x3/uL (0.0-1.1); #Neutrophils 4.7 10x3/uL (1.5-8.4); %Basophils 1.3 % (0.0-2.0); %Eosinophils 2.9 % (0.0-6.0); %Lymphocytes 15.8 % (18.0-47.0); %Monocytes 11.9 % (0.0-10.0); %Neutrophils 67.2 % (40.0-75.0); Hemoglobin 11.5 g/dL (13.5-17.5); Mean Corpuscular HGB CONC 32.5 g/dL (32.0-36.0); Mean Corpuscular Hemoglobin 30.5 pg (27.0-33.0); Mean Corpuscular Volume 93.9 fl (81.2-95.1); Mean Platelet Volume 10.4 fl (7.4-10.4); Platelet Count 370 10x3/uL (150-450); RBC Distribution Width 13.9 % (11.5-14.5); Red Blood Cell (RBC) Count 3.77 10x6/uL (4.32-5.72)
[2023-02-23 05:40] LABS: HIV (1/2) Antibody/Antigen Non-Reactive (NonReactive); HIV 1/2 INDEX 0.08 S/CO (<1.00)
[2023-02-23] MEDS: Zinc Sulfate 220 MG CAP PO SCH (10:32)
[2023-02-23] MEDS: Finasteride 5 MG TAB PO SCH (10:32)
[2023-02-23] MEDS: Rivastigmine 1.5 MG CAP PO SCH (10:33)
[2023-02-23] MEDS ORDERED: Potassium Chloride 20 MEQ TAB PO SCH (14:00)
[2023-02-23] MEDS: Citalopram 20 MG TAB PO SCH (21:44)
[2023-02-23] MEDS: Tamsulosin HCl 0.4 MG CAP PO SCH (21:44)
[2023-02-23] MEDS: Atorvastatin Calcium 20 MG TAB PO SCH (21:45)
[2023-02-23] MEDS: Ciprofloxacin 500 MG TAB PO SCH (21:45)
[2023-02-24] MEDS: Acetaminophen 325 MG TAB PO SCH ×4 (01:10→18:54)
[2023-02-24 05:47] LABS: #Basophils 0.1 10x3/uL (0.0-0.2); #Eosinphils 0.2 10x3/uL (0.0-0.5); #Neutrophils 5.4 10x3/uL (1.5-8.4); %Basophils 0.9 % (0.0-2.0); %Eosinophils 1.9 % (0.0-6.0); %Lymphocytes 13.3 % (18.0-47.0); %Monocytes 12.8 % (0.0-10.0); %Neutrophils 70.3 % (40.0-75.0); Hemoglobin 12.6 g/dL (13.5-17.5); Mean Corpuscular HGB CONC 32.1 g/dL (32.0-36.0); Mean Corpuscular Hemoglobin 30.7 pg (27.0-33.0); Mean Corpuscular Volume 95.4 fl (81.2-95.1); Mean Platelet Volume 10.7 fl (7.4-10.4); Platelet Count 319 10x3/uL (150-450); RBC Distribution Width 13.8 % (11.5-14.5); Red Blood Cell (RBC) Count 4.11 10x6/uL (4.32-5.72); White Blood Cell (WBC) Count 7.7 10x3/uL (3.5-10.5)
[2023-02-24] MEDS: Ciprofloxacin 500 MG TAB PO SCH ×2 (06:17→21:18)
[2023-02-24 09:50] LABS: Anion Gap 18 mmol/L (10-20); BUN (Urea Nitrogen) 9 mg/dL (8.4-25.7); Calc. Creatinine Clearance 132 mL/min (70-130); Calcium 8.6 mg/dL (7.8-10.44); Carbon Dioxide 23 mmol/L (23-31); Chloride 104 mmol/L (98-107); Estimated GFR 103; Glucose 68 mg/dL (80-115); Magnesium 2.1 mg/dL (1.6-2.6); Potassium 3.8 mmol/L (3.5-5.1); Sodium 141 mmol/L (136-145)
[2023-02-24] MEDS: Zinc Sulfate 220 MG CAP PO SCH (09:52)
[2023-02-24] MEDS: Finasteride 5 MG TAB PO SCH (09:52)
[2023-02-24] MEDS: Rivastigmine 1.5 MG CAP PO SCH (09:52)
[2023-02-24] MEDS: Tamsulosin HCl 0.4 MG CAP PO SCH (21:16)
[2023-02-24] MEDS: Atorvastatin Calcium 20 MG TAB PO SCH (21:17)
[2023-02-24] MEDS: Citalopram 20 MG TAB PO SCH (21:17)
[2023-02-25] MEDS: Acetaminophen 325 MG TAB PO SCH ×5 (02:48→23:19)
[2023-02-25 04:30] LABS: #Basophils 0.1 10x3/uL (0.0-0.2); #Eosinphils 0.2 10x3/uL (0.0-0.5); #Monocytes 0.9 10x3/uL (0.0-1.1); %Basophils 1.6 % (0.0-2.0); %Eosinophils 2.6 % (0.0-6.0); %Lymphocytes 15.8 % (18.0-47.0); %Monocytes 14.2 % (0.0-10.0); %Neutrophils 64.8 % (40.0-75.0); Hemoglobin 13.2 g/dL (13.5-17.5); Mean Corpuscular HGB CONC 31.7 g/dL (32.0-36.0); Mean Corpuscular Hemoglobin 30.9 pg (27.0-33.0); Mean Corpuscular Volume 97.7 fl (81.2-95.1); Mean Platelet Volume 10.8 fl (7.4-10.4); Platelet Count 239 10x3/uL (150-450); RBC Distribution Width 13.9 % (11.5-14.5); Red Blood Cell (RBC) Count 4.27 10x6/uL (4.32-5.72); White Blood Cell (WBC) Count 6.2 10x3/uL (3.5-10.5)
[2023-02-25 04:36] LABS: Anion Gap 20 mmol/L (10-20); BUN (Urea Nitrogen) 11 mg/dL (8.4-25.7); Calc. Creatinine Clearance 136 mL/min (70-130); Calcium 8.3 mg/dL (7.8-10.44); Carbon Dioxide 18 mmol/L (23-31); Chloride 105 mmol/L (98-107); Estimated GFR 104; Glucose 62 mg/dL (80-115); Magnesium 1.9 mg/dL (1.6-2.6); Potassium 3.6 mmol/L (3.5-5.1); Sodium 139 mmol/L (136-145)
[2023-02-25 04:46] LABS: Platelet Morphology Comment Appears Adequate; RBC Morphology Normal
[2023-02-25] MEDS: Ciprofloxacin 500 MG TAB PO SCH ×2 (05:42→20:52)
[2023-02-25] MEDS ORDERED: Magnesium 2 GM/50 ML(in water) 2 GM in Premix Bag 1 BAG IVPB SCH (08:00)
[2023-02-25] MEDS ORDERED: Potassium Chloride 20 MEQ TAB PO SCH (08:00)
[2023-02-25] MEDS: Zinc Sulfate 220 MG CAP PO SCH (08:10)
[2023-02-25] MEDS: Rivastigmine 1.5 MG CAP PO SCH (08:10)
[2023-02-25] MEDS: Finasteride 5 MG TAB PO SCH (08:10)
[2023-02-25] MEDS: Tamsulosin HCl 0.4 MG CAP PO SCH (20:53)
[2023-02-25] MEDS: Citalopram 20 MG TAB PO SCH (20:53)
[2023-02-25] MEDS: Atorvastatin Calcium 20 MG TAB PO SCH (20:53)
[2023-02-26] MEDS: Ciprofloxacin 500 MG TAB PO SCH ×2 (04:53→20:48)
[2023-02-26] MEDS: Acetaminophen 325 MG TAB PO SCH ×4 (04:53→23:48)
[2023-02-26 06:28] LABS: Anion Gap 18 mmol/L (10-20); BUN (Urea Nitrogen) 13 mg/dL (8.4-25.7); Calc. Creatinine Clearance 105 mL/min (70-130); Calcium 8.7 mg/dL (7.8-10.44); Carbon Dioxide 24 mmol/L (23-31); Chloride 105 mmol/L (98-107); Estimated GFR 96; Glucose 64 mg/dL (80-115); Magnesium 2.2 mg/dL (1.6-2.6); Potassium 4.8 mmol/L (3.5-5.1); Sodium 142 mmol/L (136-145)
[2023-02-26 06:53] LABS: Hemoglobin 13.2 g/dL (13.5-17.5); Mean Corpuscular HGB CONC 33.1 g/dL (32.0-36.0); Mean Corpuscular Hemoglobin 31.1 pg (27.0-33.0); Mean Corpuscular Volume 94.1 fl (81.2-95.1); Mean Platelet Volume 10.3 fl (7.4-10.4); Platelet Count 436 10x3/uL (150-450); RBC Distribution Width 13.7 % (11.5-14.5); Red Blood Cell (RBC) Count 4.24 10x6/uL (4.32-5.72); White Blood Cell (WBC) Count 8.6 10x3/uL (3.5-10.5)
[2023-02-26 06:55] LABS: MDiff Complete? YES
[2023-02-26 06:58] LABS: Band 2 % (5-11); Eosinophils 4 % (0-10); Lymphocytes 14 % (21-51); Monocytes 19 % (0-10); Neutrophil 61 % (42-75)
[2023-02-26 07:00] LABS: RBC Morphology Normal
[2023-02-26 07:01] LABS: Platelet Morphology Comment Appears Increased
[2023-02-26] MEDS: Zinc Sulfate 220 MG CAP PO SCH (08:36)
[2023-02-26] MEDS: Finasteride 5 MG TAB PO SCH (08:37)
[2023-02-26] MEDS: Rivastigmine 1.5 MG CAP PO SCH (08:37)
[2023-02-26] MEDS: Tamsulosin HCl 0.4 MG CAP PO SCH (20:47)
[2023-02-26] MEDS: Citalopram 20 MG TAB PO SCH (20:47)
[2023-02-26] MEDS: Atorvastatin Calcium 20 MG TAB PO SCH (20:48)
[2023-02-27] MEDS: Temazepam 15 MG CAP PO PRN (02:03)
[2023-02-27] MEDS: Ciprofloxacin 500 MG TAB PO SCH ×2 (06:04→20:06)
[2023-02-27] MEDS: Acetaminophen 325 MG TAB PO SCH ×3 (06:04→18:05)
[2023-02-27] MEDS: Zinc Sulfate 220 MG CAP PO SCH (13:55)
[2023-02-27] MEDS: Finasteride 5 MG TAB PO SCH (13:55)
[2023-02-27] MEDS: Rivastigmine 1.5 MG CAP PO SCH (13:55)
[2023-02-27] MEDS ORDERED: Haloperidol Lactate 5 MG/ML VIAL IM SCH (19:45)
[2023-02-27] MEDS: Tamsulosin HCl 0.4 MG CAP PO SCH (20:05)
[2023-02-27] MEDS: Citalopram 20 MG TAB PO SCH (20:05)
[2023-02-27] MEDS: Atorvastatin Calcium 20 MG TAB PO SCH (20:06)
[2023-02-27] MEDS ORDERED: Lorazepam 2 MG/ML VIAL SLOW IVP SCH (21:45)
[2023-02-27] MEDS ORDERED: Ziprasidone 20 MG VIAL IM SCH (21:45)
[2023-02-27] MEDS ORDERED: diphenhydrAMINE 50 MG/ML VIAL IVP SCH (21:45)
[2023-02-28] MEDS: Acetaminophen 325 MG TAB PO SCH ×5 (00:03→23:54)
[2023-02-28] MEDS: Ciprofloxacin 500 MG TAB PO SCH (05:30)
[2023-02-28] MEDS: Finasteride 5 MG TAB PO SCH (09:42)
[2023-02-28] MEDS: Rivastigmine 1.5 MG CAP PO SCH (09:42)
[2023-02-28] MEDS: Zinc Sulfate 220 MG CAP PO SCH (09:47)
[2023-02-28] MEDS ORDERED: QUEtiapine 100 MG TAB PO SCH (16:30)
[2023-02-28] MEDS ORDERED: risperiDONE 0.5 MG TAB PO SCH (21:00)
[2023-02-28] MEDS: Tamsulosin HCl 0.4 MG CAP PO SCH (21:41)
[2023-02-28] MEDS: QUEtiapine 100 MG TAB PO SCH (21:41)
[2023-02-28] MEDS: Atorvastatin Calcium 20 MG TAB PO SCH (21:41)
[2023-02-28] MEDS: Citalopram 20 MG TAB PO SCH (21:41)
[2023-03-01] MEDS: Acetaminophen 325 MG TAB PO SCH ×4 (05:12→23:59)
[2023-03-01] MEDS: Finasteride 5 MG TAB PO SCH (12:04)
[2023-03-01] MEDS: Zinc Sulfate 220 MG CAP PO SCH (12:04)
[2023-03-01] MEDS: Rivastigmine 1.5 MG CAP PO SCH (12:05)
[2023-03-01] MEDS: hydrOXYzine 10 MG TAB PO PRN ×2 (12:53→17:46)
[2023-03-01] MEDS: QUEtiapine 100 MG TAB PO SCH (21:01)
[2023-03-01] MEDS: Atorvastatin Calcium 20 MG TAB PO SCH (21:01)
[2023-03-01] MEDS: Tamsulosin HCl 0.4 MG CAP PO SCH (21:01)
[2023-03-01] MEDS: Citalopram 20 MG TAB PO SCH (21:01)
[2023-03-02] MEDS: Acetaminophen 325 MG TAB PO SCH ×3 (05:12→21:15)
[2023-03-02] MEDS ORDERED: Hydrocortisone 1% Cream 30 GM TUBE TOP SCH (10:45)
[2023-03-02] MEDS: Zinc Sulfate 220 MG CAP PO SCH (11:50)
[2023-03-02] MEDS: Finasteride 5 MG TAB PO SCH (11:50)
[2023-03-02] MEDS: hydrOXYzine 10 MG TAB PO PRN (11:51)
[2023-03-02] MEDS: Rivastigmine 1.5 MG CAP PO SCH (11:51)
[2023-03-02] MEDS: Tamsulosin HCl 0.4 MG CAP PO SCH (21:22)
[2023-03-02] MEDS: Atorvastatin Calcium 20 MG TAB PO SCH (21:22)
[2023-03-02] MEDS: Citalopram 20 MG TAB PO SCH (21:22)
[2023-03-02] MEDS: QUEtiapine 100 MG TAB PO SCH (21:22)
[2023-03-02] MEDS: Hydrocortisone 1% Cream 30 GM TUBE TOP SCH (21:23)
[2023-03-03] MEDS: Acetaminophen 325 MG TAB PO SCH ×4 (00:04→17:13)
[2023-03-03] MEDS: Zinc Sulfate 220 MG CAP PO SCH (09:15)
[2023-03-03] MEDS: Rivastigmine 1.5 MG CAP PO SCH (09:16)
[2023-03-03] MEDS: Hydrocortisone 1% Cream 30 GM TUBE TOP SCH ×2 (09:16→22:21)
[2023-03-03] MEDS: Finasteride 5 MG TAB PO SCH (09:16)
[2023-03-03] MEDS: Citalopram 20 MG TAB PO SCH (22:22)
[2023-03-03] MEDS: QUEtiapine 100 MG TAB PO SCH (22:23)
[2023-03-03] MEDS: Temazepam 15 MG CAP PO PRN (22:23)
[2023-03-03] MEDS: Tamsulosin HCl 0.4 MG CAP PO SCH (22:25)
[2023-03-03] MEDS: hydrOXYzine 10 MG TAB PO PRN (22:26)
[2023-03-03] MEDS: Atorvastatin Calcium 20 MG TAB PO SCH (22:26)
[2023-03-04] MEDS: Acetaminophen 325 MG TAB PO SCH ×2 (05:43→06:58)
[2023-03-04 08:41] VITALS: BP 135/71; TEMP 97.7
[2023-03-04] MEDS: Rivastigmine 1.5 MG CAP PO SCH (08:50)
[2023-03-04] MEDS: Finasteride 5 MG TAB PO SCH (08:50)
[2023-03-04] MEDS: Hydrocortisone 1% Cream 30 GM TUBE TOP SCH (08:50)
[2023-03-04] MEDS: Zinc Sulfate 220 MG CAP PO SCH (08:50)
[2023-03-04] MEDS: hydrOXYzine 10 MG TAB PO PRN (08:51)
== END 2023-03-04 09:30 | DRG 871 ==
LOC: CSHERS 01:08 → CSHERHOLD 08:23 → INTOOBSV 08:23 → CSHTELE 17:30 → OBSVTOIN 02-07 08:19 → CSHTELE 02-27 13:40
PROVIDERS: ADMIT Internal Medicine; ATTEND Internal Medicine
PROC: 8E0ZXY6 Isolation (ICD-10-PCS; principal; 2023-02-07)
PROC: 4A033R1 Measurement of Arterial Saturation, Peripheral, Percutaneous Approach (ICD-10-PCS; 2023-02-07)
DX: A41.9 Sepsis, unspecified organism (principal); G93.41 Metabolic encephalopathy; U07.1 COVID-19; F03.911 Unspecified dementia, unspecified severity, with agitation; N13.8 Other obstructive and reflux uropathy; E87.1 Hypo-osmolality and hyponatremia; J98.11 Atelectasis; A04.72 Enterocolitis due to Clostridium difficile, not specified as recurrent; N39.0 Urinary tract infection, site not specified; B96.5 Pseudomonas (aeruginosa) (mallei) (pseudomallei) as the cause of diseases classified elsewhere; Z66 Do not resuscitate; N40.1 Benign prostatic hyperplasia with lower urinary tract symptoms; E87.6 Hypokalemia; R33.8 Other retention of urine; I10 Essential (primary) hypertension; E78.5 Hyperlipidemia, unspecified; Z79.899 Other long term (current) drug therapy; Z87.891 Personal history of nicotine dependence; Z78.1 Physical restraint status
CPT/HCPCS: 36415; 36416; 51702; 70450; 71045; 71250; 74177; 80048; 80053; 80076; 80202; 81001; 81003; 81015; 82550; 82607; 82805; 83605; 83735; 84484; 85025; 85027; 86780; 87040; 87077; 87081; 87086; 87186; 87324; 87389; 87449; 87899; 93005; 93010; 96372; 96374; 96375; 96376; G0378; J0692; J0696; J1200; J1630; J1650; J1885; J2185; J3370; J3475; J3480; J3486; J3490; J7050; J7120; Q9967